=== PATIENT | male | born 1975 | race Two or more races ===

== ENCOUNTER 2022-03-11 08:03 | Emergency (ER) | payer BC, OTHER ==
[~2022-03-11] VITALS: Ht 182.9 cm; Wt 183.2 kg
[2022-03-11 09:34] VITALS: BP 136/81
[2022-03-11] MEDS ORDERED: cefTRIAXone SOD 1,000 MG VL IM ONE (10:00)
[2022-03-11] MEDS ORDERED: CEPH-509 PO (10:02)
== END 2022-03-11 10:15 | disposition home or self-care (01) ==
LOC: ER 08:03
DX: L03.115 Cellulitis of right lower limb (principal); I10 Essential (primary) hypertension
CPT/HCPCS: 93971; 96372; 99284; J0696